=== PATIENT | male | born 1990 | race Two or more races ===

== ENCOUNTER 2020-08-25 11:31 | Emergency (ER) | payer MEDICAID ==
[~2020-08-25] VITALS: Ht 185.4 cm; Wt 81.6 kg
[2020-08-25 11:44] LABS: Urine WBC None Seen /hpf (0 - 3)
[2020-08-25 11:45] VITALS: BP 156/98
[2020-08-25 11:55] LABS: Urine Bacteria NONE SEEN /hpf (None Seen); Urine Blood Negative /uL (Negative); Urine Specific Gravity 1.004 (1.001-1.035)
== END 2020-08-25 13:11 | disposition home or self-care (01) ==
LOC: ER 11:31
DX: I86.1 Scrotal varices (principal)
CPT/HCPCS: 76870; 81001